=== PATIENT | female | born 1945 | race Caucasian/White ===

== ENCOUNTER 2016-11-13 10:43 | Emergency (ER) | payer MEDICARE ==
[2016-11-13] MEDS ORDERED: KETOROLAC TROMETHAMINE 30 MG/ML VIAL ONE (11:28)
[2016-11-13] MEDS ORDERED: HYDROcodone/APAP 5/325 MG 1 TAB TABLET PO ONE (11:29)
--- NOTE | 2016-11-13 11:52 | CT REPORT ---
HISTORY: One week of right flank pain. COMPARISON: None. TECHNIQUE: This examination was performed using automated exposure control, adjustment of mA or kV according to patient size, and/or use of iterative reconstruction technique. Axial contiguous images of the abdome n and pelvis were obtained without oral or IV contrast, coronal reformat images also performed. FINDINGS: LUNGS: There is a 4 mm solid noncalcified nodule in the right lower lobe, best seen on image 18 of se anna 2. There are dependent atelectatic changes. The heart is enlarged. The visualized lungs are othe rwise clear. Hepatobiliary:No focal hepatic lesions are seen. The portal vein is normal in caliber. There is no in trahepatic biliary ductal dilatation. The gallbladder is incompletely distended. Spleen: Normal in size and radiographic appearance. Pancreas: No focal pancreatic lesion or pancreatic ductal dilatation. Adrenals:Unremarkable. Kidneys: The kidneys are normal in size bilaterally. There is no evidence of hydronephrosis or renal/ ureteral calculus. Peritoneum: There is no evidence of free fluid or free air. Vessels: Mild atherosclerotic disease affects the aorta and its branches. The IVC appears unremarkabl e. Lymph nodes: There is no lymphadenopathy. Bowel: The stomach is incompletely distended. The small bowel appears unremarkable. . The colon is in completely distended with stool. No focal bowel wall thickening is seen. There is diverticulosis of the sigmoid and descending colon without CT evidence of diverticulitis. Pelvis: The bladder appears unremarkable, without intraluminal mass or calculus. The uterus and ovari es are absent. Bones: There are degenerative changes noted in the spine. There are incompletely healed fractures of the right fifth and sixth ribs anteriorly which appears subacute. There are old, largely healed fract ures of the right seventh, eighth and ninth ribs laterally. There is a mild levoscoliosis of lumbar s pine. No blastic or lytic lesions are identified. The soft tissues appear unremarkable. IMPRESSION: 1. No evidence of hydronephrosis or renal/ureteral calculus. 2. Diverticulosis of the colon without CT evidence of diverticulitis. 3. Incompletely healed fractures of the right fifth and sixth ribs anteriorly appears subacute. Fract ures of the right seventh through ninth ribs laterally appear old. Correlation with physical examinat ion is recommended. 4. 4 mm solid nodule in the right lower lobe is most likely benign. Final Electronic Signature: This report was electronically signed by Donn Pugh MD on 11/14/19 17 11:50 AM. lavell /
--- NOTE | 2016-11-13 12:45 | ER PHYSICIAN DOCUMENTATION ---
Physician Documentation [facility] Name:Carolyn Singh Age:70 yrs Sex:Female :1945 Arrival Date:11/13/2016 Time:10:43 BedNH Private MD:Chris Mantilla ED, Scott Disposition: 11/13/16 12:02 Discharged to Home/Self Care. Impression: Rib Fracture. - Condition is Fair. - Discharge Instructions: RIB FRACTURE - FRACTURE, Rib. - Prescriptions for Hydrocodone- Acetaminophen 5-325 mg Oral Tablet - take 1 tablet by ORAL route every 6 hours As needed; 20 tablet. - Medical Reconciliation form form. - Follow up: Chris Mantilla MD; When: 1 week; Reason: Recheck today's complaints. - Problem is new. - Symptoms have improved. HPI: 11/13 11:59 This 70 yrs old Female presents to ER via Private Vehicle with complaints of sc Back Pain. 11:59 The patient presents with pain that is acute, and an injury. The symptoms are located sc in the low back area, mid back area and right mid back. Onset: The symptoms/episode began/occurred 1 week(s) ago. The pain does not radiate. Associated signs and symptoms: The patient has no apparent associated signs or symptoms. The problem was sustained during a fall, while walking, last fall one week ago, didn't feel injured at time, now intermittent right flank pain and muscle spasms worse with laughing. Historical: - Home Meds: 1. Diflucan 100 mg oral tab 2 tabs once daily 2. clindamycin HCl 300 mg oral cap 1 cap every 6 hours 3. Celebrex 100 mg oral cap 1 cap as needed 4. Lidoderm 5 %(700 mg/patch) topical ptmd 1 patch once daily 5. duloxetine 60 mg oral cpDR 1 cap once daily 6. amlodipine 5 mg oral tab 1 tab once daily 7. Sinemet 25-250 mg oral tab 2 tabs 3 times per day 8. Requip 4 mg oral tab 1 tab at bedtime 9. vitamin d 10. magnesium oxide oral powd - PMHx: vitamin d deficiency; short term memory loss; solar lentigo; SLEEP APNEA; OBESITY; hypoxia; HYPERTENSION; GERD; gait instability; emotional lability; dyspnea; dyslipidemia; DEPRESSION; ARTHRITIS; - PSHx: None; - Tetanus: < 10 years. - Ebola Screening: : Patient negative for fever greater than or equal to 101.5 degrees Fahrenheit, and additional compatible Ebola Virus Disease symptoms. Patient denies exposure to infectious person. Patient denies travel to an Ebola-affected area in the 21 days before illness onset. . - Immunization history: Pneumococcal vaccine is up to date, Flu Vaccine < 1 year. - Social history: Smoking status: Patient states was never smoker of tobacco. ROS: 12:01 Constitutional: Negative for fever, chills, and weight loss. sc Eyes: Negative for injury, pain, redness, and discharge. ENT: Negative for injury, pain, and discharge. Neck: Negative for injury, pain, and swelling. Cardiovascular: Negative for chest pain, palpitations, and edema. Respiratory: Negative for shortness of breath, cough, wheezing, and pleuritic chest pain. Abdomen/GI: Negative for abdominal pain, nausea, vomiting, diarrhea, and constipation. Skin: Negative for injury, rash, and discoloration. 12:01 Neuro: Negative for headache, weakness, numbness, tingling, and seizure. sc 12:01 Back: Positive for injury or acute deformity. Exam: Constitutional: This is a well developed, well nourished patient who is awake, alert, and in no acute distress. Head/Face: Normocephalic, atraumatic. Eyes: Pupils equal round and reactive to light, extra-ocular motions intact. Lids and lashes normal. Conjunctiva and sclera are non-icteric and not injected. Cornea within normal limits. Periorbital areas with no swelling, redness, or edema. ENT: Nares patent. No nasal discharge, no septal abnormalities noted. Tympanic membranes are normal and external auditory canals are clear. Oropharynx with no redness, swelling, or masses, exudates, or evidence of obstruction, uvula midline. Mucous membranes moist. Neck: Trachea midline, no thyromegaly or masses palpated, and no cervical lymphadenopathy. Supple, full range of motion without nuchal rigidity, or vertebral point tenderness. No meningismus. Chest/axilla: Normal chest wall appearance and motion. Nontender with no deformity. No lesions are appreciated. Cardiovascular: Regular rate and rhythm with a normal S1 and S2. No gallops, murmurs, or rubs. Normal PMI, no JVD. No pulse deficits. Respiratory: Lungs have equal breath sounds bilaterally, clear to auscultation and percussion. No rales, rhonchi or wheezes noted. No increased work of breathing, no retractions or nasal flaring. Abdomen/GI: Soft, non-tender, with normal bowel sounds. No distension or tympany. No guarding or rebound. No evidence of tenderness throughout. Skin: Warm, dry with normal turgor. Normal color with no rashes, no lesions, and no evidence of cellulitis. 12:01 Neuro: Awake and alert, GCS 15, oriented to person, place, time, and situation. sc Cranial nerves II-XII grossly intact. Motor strength 5/5 in all extremities. Sensory grossly intact. Cerebellar exam normal. Normal gait. 12:01 Back: pain, that is moderate, of the right mid back, ROM is painful, normal spinal alignment noted, CVA tenderness, that is mild, is noted on the right, vertebral tenderness, is not appreciated, muscle spasm, is appreciated in the right mid back. 12:04 Neuro: Sensation: is normal, no obvious gross deficits, Gait: is unsteady, needs sc assistance, uses a walker, Deep tendon reflexes are 2+ (normal) in the . Vital Signs: 10:52 BP 158 / 64 (auto/); lp 10:52 Pulse Ox 90% ; lp 10:54 BP 158 / 64; Pulse 42; Resp 18; Temp 97.4(O); Pulse Ox 90% on R/A; Weight 92.53 kg; lp Height 5 ft. 3 in. (160.02 cm); Pain 9/10; 11:37 BP 167 / 83 (auto/); lp 11:37 Pulse Ox 92% ; lp 12:01 BP 142 / 74 (auto/); lp 12:02 Pulse Ox 95% ; lp 12:22 Pulse Ox 88% ; lp 12:30 BP 149 / 71 (auto/); lp 12:32 Pulse Ox 92% ; lp 10:54 Body Mass Index 36.14 (92.53 kg, 160.02 cm) lp MDM: 10:45 Patient medically screened. hi 12:01 Differential diagnosis: Fracture Pyelonephritis ruptured disc. Data reviewed: vital sc signs, nurses notes, radiologic studies, and as a result, I will discharge patient. Counseling: I had a detailed discussion with the patient and/or guardian regarding: the historical points, exam findings, and any diagnostic results supporting the discharge/admit diagnosis, radiology results, the need for outpatient follow up, to return to the emergency department if symptoms worsen or persist or if there are any questions or concerns that arise at home. 12:03 ED course: Refused admission, pain well controlled now. RT explaining incentive sc spirometer to pt.. 11/13 11:31 Order name: CAT SCAN; [id number] EDMS Dispensed Medications: 11:41 Drug: HYDROcodone-acetaminophen 5 mg-325 mg 1 tabs; Route: PO; lp 12:42 Follow up: Response: No adverse reaction; No change in condition lp 11:41 Drug: Toradol 30 mg; Route: IM; Site: left gluteus; lp 12:42 Follow up: Response: No adverse reaction; Pain is decreased lp Signatures: Kera Royal RN RN lp Dinh Richmond MD MD hi
--- NOTE | 2016-11-13 12:45 | ER NURSING DOCUMENTATION ---
Nurse's Notes [facility] Name:Carolyn Singh Age:70 yrs Sex:Female :1945 Arrival Date:11/13/2016 Time:10:43 BedVT Private MD:Chris Manitlla Diagnosis:Rib Fracture Presentation: 11/13 10:47 Presenting complaint: Patient states: Back pain. Transition of care: Home. lp 10:47 Acuity: PREM 3 lp 10:47 Method Of Arrival: Private Vehicle lp Triage Assessment: 11:06 General: Appears uncomfortable, Behavior is appropriate for age. Pain: Complains of lp pain in right mid back and right low back. EENT: No deficits noted. Neuro: No deficits noted. Cardiovascular: No deficits noted. Respiratory: No deficits noted. GI: No deficits noted. : No deficits noted. Derm: No deficits noted. Musculoskeletal: Circulation, motion, and sensation intact Capillary refill < 3 seconds Range of motion limited in right hip Tenderness present in right mid back and right low back Reports pain in right mid back and right low back. Historical: - Home Meds: 1. Diflucan 100 mg oral tab 2 tabs once daily 2. clindamycin HCl 300 mg oral cap 1 cap every 6 hours 3. Celebrex 100 mg oral cap 1 cap as needed 4. Lidoderm 5 %(700 mg/patch) topical ptmd 1 patch once daily 5. duloxetine 60 mg oral cpDR 1 cap once daily 6. amlodipine 5 mg oral tab 1 tab once daily 7. Sinemet 25-250 mg oral tab 2 tabs 3 times per day 8. Requip 4 mg oral tab 1 tab at bedtime 9. vitamin d 10. magnesium oxide oral powd - PMHx: vitamin d deficiency; short term memory loss; solar lentigo; SLEEP APNEA; OBESITY; hypoxia; HYPERTENSION; GERD; gait instability; emotional lability; dyspnea; dyslipidemia; DEPRESSION; ARTHRITIS; - PSHx: None; - Tetanus: < 10 years. - Ebola Screening: : Patient negative for fever greater than or equal to 101.5 degrees Fahrenheit, and additional compatible Ebola Virus Disease symptoms. Patient denies exposure to infectious person. Patient denies travel to an Ebola-affected area in the 21 days before illness onset. . - Immunization history: Pneumococcal vaccine is up to date, Flu Vaccine < 1 year. - Social history: Smoking status: Patient states was never smoker of tobacco. Screenin:09 Infectious Disease Risk None. Abuse screen: Denies threats or abuse. Denies injuries lp from another. Nutritional screening: No deficits noted. Assessment: 11:08 See Triage Assessment done by same RN. Neuro: Level of Consciousness is awake, alert, lp Oriented to person, place, time, event, Supersonic Engineer are equal bilaterally Weakness in right Gait is. EENT: No deficits noted. Vital Signs: 10:52 BP 158 / 64 (auto/); lp 10:52 Pulse Ox 90% ; lp 10:54 BP 158 / 64; Pulse 42; Resp 18; Temp 97.4(O); Pulse Ox 90% on R/A; Weight 92.53 kg; lp Height 5 ft. 3 in. (160.02 cm); Pain 9/10; 11:37 BP 167 / 83 (auto/); lp 11:37 Pulse Ox 92% ; lp 12:01 BP 142 / 74 (auto/); lp 12:02 Pulse Ox 95% ; lp 12:22 Pulse Ox 88% ; lp 12:30 BP 149 / 71 (auto/); lp 12:32 Pulse Ox 92% ; lp 10:54 Body Mass Index 36.14 (92.53 kg, 160.02 cm) lp ED Course: 10:44 Patient arrived in ED. ds 10:44 Chris Mantilla MD is Private Physician. ds 10:45 Dinh Richmond MD is Attending Physician. sc 10:47 Kera Royal, JACKIE is Primary Nurse. lp 10:47 Triage completed. lp 10:[address] Richmond notified. lp 11:09 Valuables Remains with patient Patient has correct armband on for positive lp identification. Placed in gown. Bed in low position. Call light in reach. Side rails up X 1. 11:[address] ms 11:31 CAT SCAN; [id number] In Process Unspecified. EDMS 12:02 Chris Mantilla MD is Referral Physician. sc 12:13 Incentive Spirometry performed: 10 inspirations. Volume of inspiration: 2000 mls. kr Patient tolerated well Patient Effort good. Administered Medications: 11:41 Drug: HYDROcodone-acetaminophen 5 mg-325 mg 1 tabs; Route: PO; lp 12:42 Follow up: Response: No adverse reaction; No change in condition lp 11:41 Drug: Toradol 30 mg; Route: IM; Site: left gluteus; lp 12:42 Follow up: Response: No adverse reaction; Pain is decreased lp Outcome: 12:02 Discharge ordered by . perico 12:41 Discharged to home ambulatory. lp 12:41 Discharged to home via wheelchair. 12:41 Condition: stable 12:41 Instructed on discharge instructions, follow up and referral plans. medication usage. 12:43 Patient left the ED. lp 11/14 10:37 Discharge F/U Call: Unable to reach: left voicemail: lp Signatures: Dispatcher [employer] EDKera Turk RN RN lp ot, Ayleen, Dinh Aguilar MD MD sc Strickland, Mary ms Risley, Karen kr
== END 2016-11-13 12:44 | disposition home or self-care (01) ==
LOC: ER 10:43
DX: S29.9XXA Unspecified injury of thorax, initial encounter (principal); M62.830 Muscle spasm of back; W19.XXXA Unspecified fall, initial encounter; Y93.01 Activity, walking, marching and hiking; R26.81 Unsteadiness on feet; I10 Essential (primary) hypertension; Z79.899 Other long term (current) drug therapy
CPT/HCPCS: 74176; 96372; 99284; J1885